=== PATIENT | male | born 1990 | race American Indian/Alaskan Native ===

== ENCOUNTER 2021-06-25 12:29 | Emergency (ER) | payer MEDICAID, MEDICARE ==
[2021-06-25] MEDS ORDERED: guaiFENesin DM 200/20 MG ORAL LIQD 10 ML PO ONE (12:50)
[2021-06-25] MEDS ORDERED: ONDANSETRON 4 MG ODT TAB PO ONE (12:50)
--- NOTE | 2021-06-25 13:16 | Emergency Department Report ---
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 He has associated nausea, vomiting, subjective fever, generalized body aches, wheezing after coughing, diarrhea, generalized body aches. Patient reports that he went to urgent care a week ago and tested negative for COVID-19. He denies any SOB, CP, abd pain. no other pmhx. He has not been vaccinated for COVID-19. He denies any known sick contacts. He has an allergy to pollen. He states he is a non-smoker. - Related Data Previous Rx's Medication Instructions Recorded Last Taken Type Benzonatate [Tessalon Perles] 100 mg PO Q8HR PRN #12 capsule 06/25/21 Unknown Rx Fluticasone [Flonase] 1 spray NS QDAY #1 bottle 06/25/21 Unknown Rx Loratadine 10 mg PO DAILY #14 tablet 06/25/21 Unknown Rx Meclizine [Antivert] 25 mg PO TID PRN #20 tablet 06/25/21 Unknown Rx guaiFENesin ER [Mucinex ER] 600 mg PO Q12H #14 tablet.er 06/25/21 Unknown Rx Allergies Allergy/AdvReac Type Severity Reaction Status Date / Time pollen extracts Allergy Unknown Verified 06/25/21 12:31 ED Review of Systems ROS: Stated complaint: NAUSEA Other details as noted in HPI Comment: All other systems reviewed and negative ED Past Medical Hx - Past Medical History Previous Medical History?: No - Surgical History Past Surgical History?: No - Medications Home Medications: Home Medications Medication Instructions Recorded Confirmed Last Taken Type Benzonatate [Tessalon Perles] 100 mg PO Q8HR PRN #12 capsule 06/25/21 Unknown Rx Fluticasone [Flonase] 1 spray NS QDAY #1 bottle 06/25/21 Unknown Rx Loratadine 10 mg PO DAILY #14 tablet 06/25/21 Unknown Rx Meclizine [Antivert] 25 mg PO TID PRN #20 tablet 06/25/21 Unknown Rx guaiFENesin ER [Mucinex ER] 600 mg PO Q12H #14 tablet.er 06/25/21 Unknown Rx ED Physical Exam - General Limitations: Other General appearance: alert, in no apparent distress - Head Head exam: Present: atraumatic, normocephalic - Eye Eye exam: Present: normal appearance - ENT ENT exam: Present: mucous membranes moist - Respiratory Respiratory exam: Present: normal lung sounds bilaterally. Absent: respiratory distress, wheezes, rales, rhonchi, stridor, chest wall tenderness, accessory muscle use, decreased breath sounds, prolonged expiratory - Cardiovascular Cardiovascular Exam: Present: regular rate, normal rhythm, normal heart sounds. Absent: systolic murmur, diastolic murmur, rubs, gallop - Neurological Exam Neurological exam: Present: alert, oriented X3 - Psychiatric Psychiatric exam: Present: normal affect, normal mood - Skin Skin exam: Present: warm, dry, intact ED Course Vital Signs 06/25/21 06/25/21 06/25/21 12:34 14:13 15:00 Temperature 98.6 F 98.2 F Pulse Rate 63 75 Respiratory 20 18 Rate Blood Pressure 107/60 133/85 [Right] O2 Sat by Pulse 97 100 99 Oximetry ED Medical Decision Making - Lab Data Result diagrams: 06/25/21 14:10 06/25/21 14:10 Lab Results 06/25/21 06/25/21 Range/Units 14:10 14:10 WBC 5.2 (4.5-11.0) K/mm3 RBC 5.19 H (3.65-5.03) M/mm3 Hgb 13.4 (11.8-15.2) gm/dl Hct 41.9 (35.5-45.6) % MCV 81 L (84-94) fl MCH 26 L (28-32) pg MCHC 32 (32-34) % RDW 14.4 (13.2-15.2) % Plt Count 228 (140-440) K/mm3 Lymph % (Auto) 26.6 (13.4-35.0) % [place] % (Auto) 8.0 H (0.0-7.3) % Eos % (Auto) 0.7 (0.0-4.3) % Baso % (Auto) 1.6 (0.0-1.8) % Lymph # (Auto) 1.4 (1.2-5.4) K/mm3 [place] # (Auto) 0.4 (0.0-0.8) K/mm3 Eos # (Auto) 0.0 (0.0-0.4) K/mm3 Baso # (Auto) 0.1 (0.0-0.1) K/mm3 Seg Neutrophils % 63.1 (40.0-70.0) % Seg Neutrophils # 3.3 (1.8-7.7) K/mm3 Sodium 142 (137-145) mmol/L Potassium 4.1 (3.6-5.0) mmol/L Chloride 105.3 (98-107) mmol/L Carbon Dioxide 26 (22-30) mmol/L Anion Gap 15 mmol/L BUN 8 L (9-20) mg/dL Creatinine 0.9 (0.8-1.3) mg/dL Estimated GFR > 60 ml/min BUN/Creatinine Ratio 9 % Glucose 113 H (75-100) mg/dL Calcium 9.3 (8.4-10.2) mg/dL Total Bilirubin 0.50 (0.1-1.2) mg/dL AST 19 (5-40) units/L ALT 23 (7-56) units/L Alkaline Phosphatase 71 (35-129) units/L Total Protein 7.7 (6.3-8.2) g/dL Albumin 4.4 (3.9-5) g/dL Albumin/Globulin Ratio 1.3 % Vital Signs 06/25/21 06/25/21 06/25/21 12:34 14:13 15:00 Temperature 98.6 F 98.2 F Pulse Rate 63 75 Respiratory 20 18 Rate Blood Pressure 107/60 133/85 [Right] O2 Sat by Pulse 97 100 99 Oximetry - Radiology Data Radiology results: report reviewed Ordering Physician: DEANDRE ESQUIVEL Date of Service: 06/25/21 Procedure(s): XR chest routine 2V Accession Number(s): [id number] cc: DEANDRE ESQUIVEL Fluoro Time In Minutes: CHEST 2 VIEWS INDICATION / CLINICAL INFORMATION: cough. COMPARISON: None available. FINDINGS: SUPPORT DEVICES: None. HEART / MEDIASTINUM: No significant abnormality. LUNGS / PLEURA: No significant pulmonary or pleural abnormality. No pneumothorax. ADDITIONAL FINDINGS: No significant additional findings. IMPRESSION: 1. No acute findings. 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 He has associated nausea, vomiting, subjective fever, generalized body aches, wheezing after coughing, diarrhea, generalized body aches. Patient reports that he went to urgent care a week ago and tested negative for COVID-19. He denies any SOB, CP, abd pain. no other pmhx. He has not been vaccinated for COVID-19. He denies any known sick contacts. He has an allergy to pollen. He states he is a non-smoker. vitals are normal. Breath sounds clear bilaterally. Chest x-ray 1. No acute findings. Labs are stable. Symptoms likely related to URI. Discussed supportive care and symptomatic treatment with patient. Discussed the importance of oral hydration. Advised patient to please take medication as prescribed. Increase your fluid intake. May drink warm tea and eat warm soup broth. Follow-up with a primary care doc tor. May use a vaporizer. Return to emergency room for any new or worsening symptoms. Critical care attestation.: If time is entered above; I have spent that time in minutes in the direct care of this critically ill patient, excluding procedure time. ED Disposition Clinical Impression: URI (upper respiratory infection) Qualifiers: URI type: unspecified URI Qualified Code(s): J06.9 - Acute upper respiratory infection, unspecified Disposition: 01 HOME / SELF CARE / HOMELESS Is pt being admited?: No Does the pt Need Aspirin: No Condition: Stable Instructions: Viral Respiratory Infection Additional Instructions: please take medication as prescribed. Increase your fluid intake. May drink warm tea and eat warm soup broth. Follow-up with a primary care doctor. May use a vaporizer. Return to emergency room for any new or worsening symptoms. Prescriptions: Meclizine [Antivert] 25 mg PO TID PRN #20 tablet PRN Reason: dizziness/nausea Fluticasone [Flonase] 1 spray NS QDAY #1 bottle Loratadine 10 mg PO DAILY #14 tablet guaiFENesin ER [Mucinex ER] 600 mg PO Q12H #14 tablet.er Benzonatate [Tessalon Perles] 100 mg PO Q8HR PRN #12 capsule PRN Reason: cough Referrals: PRIMARY CAREMD [Primary Care Provider] - 3-5 Days PHIL SALDAÑA MD [Staff Physician] - 3-5 Days [facility] [Provider Group] - 3-5 Days Time of Disposition: 14:48 Print Language: BERMUDIAN
[2021-06-25 14:19] LABS: Basophils # (Auto) 0.1 K/mm3 (0.0-0.1); Basophils % (Auto) 1.6 % (0.0-1.8); Eosinophils % (Auto) 0.7 % (0.0-4.3); Hematocrit 41.9 % (35.5-45.6); Hemoglobin 13.4 gm/dl (11.8-15.2); Lymphocytes # (Auto) 1.4 K/mm3 (1.2-5.4); Lymphocytes % (Auto) 26.6 % (13.4-35.0); Mean Corpuscular HGB Conc 32 % (32-34); Mean Corpuscular Volume 81 fl (84-94); Monocytes # (Auto) 0.4 K/mm3 (0.0-0.8); Platelet Count 228 K/mm3 (140-440); Red Blood Count 5.19 M/mm3 (3.65-5.03); Red Cell Distribution Width 14.4 % (13.2-15.2)
[2021-06-25 14:40] LABS: Alanine Aminotransferase 23 units/L (7-56); Albumin 4.4 g/dL (3.9-5); BUN/Creatinine Ratio 9; Blood Urea Nitrogen 8 mg/dL (9-20); Calcium 9.3 mg/dL (8.4-10.2); Hemolysis Index 3
[2021-06-25 15:01] VITALS: BP 133/85
== END 2021-06-25 15:01 | disposition home or self-care (01) ==
LOC: ED 12:29
DX: J06.9 Acute upper respiratory infection, unspecified (principal); Z91.09 Other allergy status, other than to drugs and biological substances; Z79.899 Other long term (current) drug therapy
CPT/HCPCS: 36415; 71046; 80053; 85025; 99283; J3490; Q0162

== ENCOUNTER 2021-08-24 11:37 | Emergency (ER) | payer MEDICARE | END 2021-08-24 17:00 | disposition left against medical advice (07) | LOC: ED 11:37 | DX: R05.9 Cough, unspecified (principal); Z53.21 Procedure and treatment not carried out due to patient leaving prior to being seen by health care provider ==

== ENCOUNTER 2021-08-24 14:22 | Emergency (ER) | payer MEDICARE ==
--- NOTE | 2021-08-24 21:29 | XRay Report ---
CHEST 2 VIEWS INDICATION / CLINICAL INFORMATION: Lightheadedness/Dizziness. COMPARISON: Chest x-ray 06/25/2021 FINDINGS: SUPPORT DEVICES: None. HEART / MEDIASTINUM: No significant abnormality. LUNGS / PLEURA: No significant pulmonary or pleural abnormality. No pneumothorax. ADDITIONAL FINDINGS: No significant additional findings. IMPRESSION: 1. No active cardiopulmonary disease. Signer Name: Jeancarlos Shen II, MD Signed: 08/24/2021 9:25 PM Workstation Name: [id number]
[2021-08-24 22:22] LABS: Basophils % (Auto) 0.2 % (0.0-1.8); Eosinophils # (Auto) 0.2 K/mm3 (0.0-0.4); Eosinophils % (Auto) 2.4 % (0.0-4.3); Hematocrit 40.9 % (35.5-45.6); Hemoglobin 13.3 gm/dl (11.8-15.2); Lymphocytes # (Auto) 2.2 K/mm3 (1.2-5.4); Lymphocytes % (Auto) 31.7 % (13.4-35.0); Mean Corpuscular HGB Conc 33 % (32-34); Mean Corpuscular Volume 82 fl (84-94); Monocytes # (Auto) 0.6 K/mm3 (0.0-0.8); Monocytes % (Auto) 9.1 % (0.0-7.3); Platelet Count 216 K/mm3 (140-440); Red Blood Count 4.97 M/mm3 (3.65-5.03); Red Cell Distribution Width 14.5 % (13.2-15.2)
[2021-08-24 22:25] LABS: Alanine Aminotransferase 18 units/L (7-56); BUN/Creatinine Ratio 9; Blood Urea Nitrogen 8 mg/dL (9-20); Calcium 9.1 mg/dL (8.4-10.2); Hemolysis Index 27
--- NOTE | 2021-08-24 23:26 | Emergency Department Report ---
ED General Adult HPI - General Chief complaint: Dizziness Stated complaint: COUGH/DIZZY Time Seen by Provider: 08/24/21 18:40 Source: patient Mode of arrival: Ambulatory Limitations: No Limitations - History of Present Illness Initial comments: 31-year-old hearing-impaired male presents emergency department complaining of having a week history of episodes of coughing, chest aches, presyncope, sore throat, diarrhea which has been fluctuating since the onset however yesterday he did experience coughing with green milky mucus production, sore throat and tingling to the chest so decided come to the emergency department since it occurred while he was working. 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 He has not had his Covid vaccination but reports no contact with any known Covid positive persons. Ports no hemoptysis no hematemesis hematochezia, Improves with: none Worsens with: none Associated Symptoms: denies other symptoms Treatments Prior to Arrival: none - Related Data Previous Rx's Medication Instructions Recorded Last Taken Type Benzonatate [Tessalon Perles] 100 mg PO Q8HR PRN #12 capsule 06/25/21 Unknown Rx Fluticasone [Flonase] 1 spray NS QDAY #1 bottle 06/25/21 Unknown Rx RX: Loratadine 10 mg PO DAILY #14 tablet 06/25/21 Unknown Rx RX: Meclizine [Antivert] 25 mg PO TID PRN #20 tablet 06/25/21 Unknown Rx guaiFENesin ER [Mucinex ER] 600 mg PO Q12H #14 tablet.er 06/25/21 Unknown Rx Allergies Allergy/AdvReac Type Severity Reaction Status Date / Time pollen extracts Allergy Unknown Verified 06/25/21 12:31 ED Review of Systems ROS: Stated complaint: COUGH/DIZZY Other details as noted in HPI Comment: All other systems reviewed and negative ED Past Medical Hx - Social History Smoking Status: Never Smoker Substance Use Type: None - Medications Home Medications: Home Medications Medication Instructions Recorded Confirmed Last Taken Type Benzonatate [Tessalon Perles] 100 mg PO Q8HR PRN #12 capsule 06/25/21 Unknown Rx Fluticasone [Flonase] 1 spray NS QDAY #1 bottle 06/25/21 Unknown Rx RX: Loratadine 10 mg PO DAILY #14 tablet 06/25/21 Unknown Rx RX: Meclizine [Antivert] 25 mg PO TID PRN #20 tablet 06/25/21 Unknown Rx guaiFENesin ER [Mucinex ER] 600 mg PO Q12H #14 tablet.er 06/25/21 Unknown Rx ED Physical Exam - General Limitations: No Limitations General appearance: alert, in no apparent distress - Head Head exam: Present: atraumatic, normocephalic - Eye Eye exam: Present: normal appearance, PERRL, EOMI - ENT ENT exam: Present: mucous membranes moist - Neck Neck exam: Present: normal inspection, full ROM - Respiratory Respiratory exam: Present: normal lung sounds bilaterally. Absent: respiratory distress, rhonchi, stridor, accessory muscle use, decreased breath sounds - Cardiovascular Cardiovascular Exam: Present: regular rate, normal rhythm. Absent: systolic murmur, diastolic murmur, rubs, gallop - GI/Abdominal GI/Abdominal exam: Present: soft, normal bowel sounds - Rectal Rectal exam: Present: deferred - Extremities Exam Extremities exam: Present: normal inspection - Back Exam Back exam: Present: normal inspection. Absent: CVA tenderness (R), CVA tenderness (L) - Neurological Exam Neurological exam: Present: alert, oriented X3, CN II-XII intact - Psychiatric Psychiatric exam: Present: normal affect, normal mood - Skin Skin exam: Present: warm, dry, intact, normal color. Absent: rash ED Course Vital Signs 08/24/21 08/24/21 08/24/21 14:32 16:43 18:40 Temperature 98.5 F 97.8 F Pulse Rate 89 57 L 80 Respiratory 18 16 Rate Blood Pressure 130/80 Blood Pressure 127/76 [Right] O2 Sat by Pulse 100 98 Oximetry ED Medical Decision Making - Lab Data Result diagrams: 08/24/21 21:42 08/24/21 21:42 - EKG Data EKG shows normal: sinus rhythm Rate: normal - EKG Data Interpretation: no acute changes - Radiology Data Radiology results: report reviewed Chest x-ray shows no acute process - Medical Decision Making This patient presents with chest pain that is very unlikely angina or acute coronary syndrome. The emergency department evaluation has not identified any cause for suspicion that this chest pain has a cardiac etiology. Based on their history, EKG (which showed no evidence of ischemia or infarction) and imaging, in addition to the patient's physical exam, I see no evidence at this time for a malignant etiology for the patient's chest pain. There is no acute evidence for pulmonary embolus, acute myocardial infarction, pneumothorax, Boerhaeve syndrom e, cardiac tamponade, thoracic artery dissection, or any other emergent cardiac, pulmonary or aortic pathology. Given the low pre-test probability for cardiac etiology of chest pain and the absence of any sign of ischemia or infarction, discharge for outpatient follow-up and further evaluation is reasonable. I have explained to the patient that even though a cardiac problem is very unlikely, follow-up and further testing is required to reduce further the already small uncertainty that exists. Other life-threatening diagnoses have been considered. The patient understands the need to return immediately if their symptoms worsen or they develop any new symptoms, and not to engage in any significant exertional activity until follow-up is obtained. Critical care attestation.: If time is entered above; I have spent that time in minutes in the direct care of this critically ill patient, excluding procedure time. ED Disposition Clinical Impression: Cough, Chest pain Disposition: HOME / SELF CARE / HOMELESS Is pt being admited?: No Does the pt Need Aspirin: No Instructions: Cough, Adult, Cool Mist Vaporizer, Nonspecific Chest Pain, Adult Referrals: PRIMARY CARE, [Primary Care Provider] - 3-5 Days Forms: Work/School Release Form(ED)
[2021-08-25 00:14] VITALS: BP 122/73
--- NOTE | 2021-08-25 10:26 | Electrocardiograph Report ---
[facility] Test Date: 2021-08-24 Test Time: 16:29:20 Pat Name: JEY PUCKETT Department: Room: Gender: M Registered Safety Engineer: MOISÉS : 1990 Requested By: JESSIE ROSENBERG Order Number: [id number] Reading MD: Quang Whyte Measurements Intervals [place] Rate: 57 P: 24 MN: 157 QRS: 38 QRSD: 91 T: 29 QT: 385 QTc: 375 Interpretive Statements Sinus bradycardia ST elev, probable normal early repol pattern No previous ECG available for comparison Electronically Signed On 08-25-2021 10:25:50 EST by Quang Whyte
== END 2021-08-25 00:13 | disposition home or self-care (01) ==
LOC: ED 14:22
DX: R05.9 Cough, unspecified (principal); R07.9 Chest pain, unspecified; Z91.048 Other nonmedicinal substance allergy status
CPT/HCPCS: 36415; 71046; 80053; 85025; 93005; 93010; 99284